=== PATIENT | female | born 1965 | race African-American/Black ===

== ENCOUNTER 2020-07-31 13:10 | Emergency (ER) | payer BC ==
[2020-07-31 13:19] VITALS: BMI 32.3
[2020-07-31] MEDS ORDERED: ACETAMINOPHEN 1000 MG/100 ML VIAL (NON FORMULARY) IVPB ONE (15:01)
[2020-07-31] MEDS ORDERED: ACETAMINOPHEN INJECTION 100 ML IVPB ONE (15:18)
[2020-07-31] MEDS ORDERED: AMOX TR/POT CLAV 875MG/125MG TABLETS (FP) PO ONE (15:40)
[2020-07-31] MEDS ORDERED: AMOX TR/POT CLAV 875MG/125MG TABLETS (FP) ONE (15:52)
[2020-07-31 15:58] LABS: BASO % 0.6 % (0-2.0); EOS % 1.6 % (0-4.5); HEMATOCRIT 38.1 % (32.4-45.2); HEMOGLOBIN 12.4 GM/dL (10.7-15.3); LYMPH % 41.5 % (8-40); MCH 25.3 pg (25.7-33.7); MCHC 32.5 g/dl (32.0-36.0); MEAN CELL VOLUME 77.7 fl (80-96); MONO % 10.5 % (3.8-10.2); NEUT % 45.8 % (42.8-82.8); PLATELET COUNT 183 K/MM3 (134-434); RDW 15.6 % (11.6-15.6); WHITE BLOOD COUNT 3.6 K/mm3 (4.0-10.0)
[2020-07-31 16:05] LABS: INR 0.97 (0.83-1.09); PROTHROMBIN TIME (PATIENT) 11.7 SEC (9.7-13.0)
[2020-07-31 16:07] LABS: ACTIVATED PTT 34.2 SECONDS (25.2-36.5)
[2020-07-31 16:49] LABS: CHLORIDE 109 mmol/L (98-107); POTASSIUM 4.5 mmol/L (3.5-5.1); SODIUM 142 mmol/L (136-145)
[2020-07-31 16:51] LABS: ALBUMIN 3.6 g/dl (3.4-5.0); ANION GAP 3 MMOL/L (8-16); CALCIUM 9.1 mg/dL (8.5-10.1); CO2 31 mmol/L (21-32); GLUCOSE,RANDOM 78 mg/dL (74-106)
[2020-07-31 16:52] LABS: BLOOD UREA NITROGEN 14.3 mg/dL (7-18)
[2020-07-31 16:55] LABS: SGOT/AST 24 U/L (15-37); SGPT/ALT 29 U/L (13-61)
[2020-07-31 16:56] LABS: BILIRUBIN,TOTAL 0.6 mg/dL (0.2-1); TOT PROT 7.5 g/dl (6.4-8.2)
[2020-07-31 16:57] LABS: ALK PHOS 90 U/L (45-117)
[2020-07-31 17:00] LABS: N-TERMINAL BNP 18.7 pg/ml (5-125)
[2020-07-31 17:31] VITALS: BP 140/87; PULSE 80; TEMP 98.3
== END 2020-07-31 17:31 | disposition home or self-care (01) ==
LOC: JER 13:10
PROC: 3E0333Z Introduction of Anti-inflammatory into Peripheral Vein, Percutaneous Approach (ICD-10-PCS; principal; 2020-07-31)
DX: R07.9 Chest pain, unspecified (principal); H66.91 Otitis media, unspecified, right ear
CPT/HCPCS: 36415; 71046-TC-FY; 80053; 82550; 83735; 83880; 84484; 85025; 85610; 85730; 93005; 93010; 99285-25; J0131